=== PATIENT | male | born 1990 | race Caucasian/White ===

== ENCOUNTER 2016-07-31 22:32 | Emergency (ER) | payer OTHER ==
[2016-08-01 00:37] VITALS: BP 125/81
[2016-08-01] MEDS ORDERED: AMOXICILLIN TRIHYDRATE 500 MG CAPSULE PO ONE (00:41)
[2016-08-01] MEDS ORDERED: OXYCODONE-ACETAMINOPHEN 5-325 MG TABLET PO ONE (00:41)
--- NOTE | 2016-08-01 00:44 | ER Document Report ---
HPI - HPI Patient complains to provider of: left ear pain Pain Level: 3 Context: Patient is a 25-year-old male that comes emergency department for chief complaint of pain in his left ear, he states he has been congested for several days but suddenly about 5 hours ago began to have sharp pain, a bubbling sound in his ear, and he states he cannot sleep. Patient denies dizziness, nausea or vomiting, fever. Patient smokes. - EENT EENT: REPORTS: Eye problems - left - DERM Skin Color: Normal - NURSING COMMENTS Comment: pt c/c left ear pain Past Medical History - General Information source: Patient - Social History Smoking Status: Current Every Day Smoker Cigarette use (# per day): Yes Chew tobacco use (# tins/day): No Smoking Education Provided: Yes - <3 min Frequency of alcohol use: Social Drug Abuse: None Lives with: Family Family History: Arthritis, DM, Hypertension, Malignancy, Thyroid Disfunction. denies: CAD, CVA, Hyperlipidemia Patient has suicidal ideation: No Patient has homicidal ideation: No Renal/ Medical History: Denies: Hx Peritoneal Dialysis Musculoskeltal Medical History: Reports Hx Musculoskeletal Deformity, Reports Hx Musculoskeletal Trauma Psychiatric Medical History: Reports: Hx Attention Deficit Hyperactivity Disorder, Hx Bipolar Disorder, Hx Depression, Hx Obsessive Compulsive Disorder Past Surgical History: Reports: Hx Orthopedic Surgery - Immunizations Immunizations up to date: Yes Hx Diphtheria, Pertussis, Tetanus Vaccination: Yes Vertical Provider Document - CONSTITUTIONAL General Appearance: Mild Distress - Patient holding his left ear, appears to be uncomfortable - INFECTION CONTROL TRAVEL OUTSIDE OF THE [place] IN LAST 30 DAYS: No - HEENT HEENT: Atraumatic, Normocephalic. negative: Normal ENT Exam - Left tympanic membrane dull, slightly bulging, erythematous; right TM is unremarkable; otherwise unremarkable ENT exam except for mild nasal congestion - NECK Neck: Normal Inspection - RESPIRATORY Respiratory: Breath Sounds Normal, No Respiratory Distress O2 Sat by Pulse Oximetry: 100 - CARDIOVASCULAR Cardiovascular: Regular Rate, Regular Rhythm - GI/ABDOMEN Gastrointestinal: Abdomen Soft, Abdomen Non-Tender - BACK Back: Normal Inspection - MUSCULOSKELETAL/EXTREMETIES Musculoskeletal/Extremeties: MAEW, FROM, Non-Tender - NEURO Level of Consciousness: Awake, Alert, Appropriate Motor/Sensory: No Motor Deficit, No Sensory Deficit - DERM Integumentary: Warm, Dry, No Rash Course - Vital Signs Vital signs: Temp Pulse Resp BP Pulse Ox 97.4 F 62 18 125/81 100 08/01/16 00:36 08/01/16 00:36 07/31/16 22:37 08/01/16 00:36 08/01/16 00:36 Discharge - Discharge Clinical Impression: Otitis media Qualifiers: Otitis media type: suppurative Laterality: left Chronicity: acute Recurrence: not specified as recurrent Spontaneous tympanic membrane rupture: without spontaneous rupture Qualified Code(s): H66.002 - Acute suppurative otitis media without spontaneous rupture of ear drum, left ear Condition: Stable Disposition: HOME, SELF-CARE Additional Instructions: Examination is consistent with an ear infection on the left side in the middle ear. Take amoxicillin as directed, use Sudafed and nasal spray as directed, take ibuprofen for pain. Follow-up with primary care. Stop smoking, the congestion and likelihood of this kind of infection are higher with smoking (in addition to long-term severe complications from smoking) Return the emergency department for any concerning or worsening symptoms including swelling to the ear or around the ear, fever, dizziness, etc. Prescriptions: Amoxicillin Trihydrate [Amoxil 875 mg Tablet] 1 tab PO BID #20 tablet Fluticasone Propionate [Flonase Nasal [place] 50 Mcg/[place] 16 gm] 2 sprays NASL Q12 #1 inhaler Pseudoephedrine HCl [Sudafed 12-Hour] 120 mg PO Q12 #20 tablet.sa
== END 2016-08-01 01:02 | disposition home or self-care (01) ==
LOC: ER 22:32
DX: H66.002 Acute suppurative otitis media without spontaneous rupture of ear drum, left ear (principal); H92.02 Otalgia, left ear; R09.81 Nasal congestion; F17.210 Nicotine dependence, cigarettes, uncomplicated; Z71.6 Tobacco abuse counseling
CPT/HCPCS: 99282

== ENCOUNTER 2016-08-02 19:04 | Emergency (ER) | payer OTHER ==
--- NOTE | 2016-08-02 22:02 | ER Document Report ---
ED Medical Screen (RME) - General Chief Complaint: Ear Pain Stated Complaint: EAR PAIN Time seen by provider: 22:01 Mode of Arrival: Ambulatory Information source: Patient TRAVEL OUTSIDE OF THE [place] IN LAST 30 DAYS: No - Related Data Allergies/Adverse Reactions: No Known Allergies Allergy (Unverified 07/31/16 22:36) Past Medical History Renal/ Medical History: Denies: Hx Peritoneal Dialysis Musculoskeltal Medical History: Reports Hx Musculoskeletal Deformity, Reports Hx Musculoskeletal Trauma Psychiatric Medical History: Reports: Hx Attention Deficit Hyperactivity Disorder, Hx Bipolar Disorder, Hx Depression, Hx Obsessive Compulsive Disorder Past Surgical History: Reports: Hx Orthopedic Surgery - Immunizations Immunizations up to date: Yes Hx Diphtheria, Pertussis, Tetanus Vaccination: Yes
--- NOTE | 2016-08-02 22:04 | ER Document Report ---
HPI - HPI Onset: Yesterday Pain Level: 1 Context: Patient returns tonight because his dog ate is amoxicillin. He is only had 4 doses. He continues to have left ear pain. He was seen by Juan on Wednesday. No fever or swelling. Associated Symptoms: None Exacerbated by: Denies Relieved by: Denies Similar symptoms previously: No Recently seen / treated by doctor: No - ROS ROS below otherwise negative: Yes Systems Reviewed and Negative: Yes All other systems reviewed and negative - DERM Skin Color: Normal, [place] Past Medical History - General Information source: Patient - Social History Smoking Status: Unknown if Ever Smoked Frequency of alcohol use: None Drug Abuse: None Lives with: Spouse/Significant other Family History: Arthritis, DM, Hypertension, Malignancy, Thyroid Disfunction Patient has suicidal ideation: No Patient has homicidal ideation: No Renal/ Medical History: Denies: Hx Peritoneal Dialysis Musculoskeltal Medical History: Reports Hx Musculoskeletal Deformity, Reports Hx Musculoskeletal Trauma Psychiatric Medical History: Reports: Hx Attention Deficit Hyperactivity Disorder, Hx Bipolar Disorder, Hx Depression, Hx Obsessive Compulsive Disorder Past Surgical History: Reports: Hx Orthopedic Surgery - Immunizations Immunizations up to date: Yes Hx Diphtheria, Pertussis, Tetanus Vaccination: Yes Vertical Provider Document - CONSTITUTIONAL Agree With Documented VS: Yes Exam Limitations: No Limitations General Appearance: No Apparent Distress - INFECTION CONTROL TRAVEL OUTSIDE OF THE [place] IN LAST 30 DAYS: No - NECK Neck: Supple - MUSCULOSKELETAL/EXTREMETIES Musculoskeletal/Extremeties: MAEW, FROM - NEURO Level of Consciousness: Awake, Alert - DERM Integumentary: Warm, Dry Discharge - Discharge Clinical Impression: Left otitis media Qualifiers: Otitis media type: suppurative Chronicity: acute Recurrence: not specified as recurrent Spontaneous tympanic membrane rupture: without spontaneous rupture Qualified Code(s): H66.002 - Acute suppurative otitis media without spontaneous rupture of ear drum, left ear Condition: Good Disposition: HOME, SELF-CARE Instructions: Otitis Media ([facility]), Amoxicillin ([facility]) Additional Instructions: to er if worse recheck your ear on wednesday at your sick call Prescriptions: Amoxicillin Trihydrate [Amoxil 500 mg Capsule] 1,000 mg PO BID #30 cap Forms: Restricted Release
[2016-08-02 22:05] VITALS: BP 121/80
== END 2016-08-02 22:11 | disposition home or self-care (01) ==
LOC: ER 19:04
DX: H66.002 Acute suppurative otitis media without spontaneous rupture of ear drum, left ear (principal)
CPT/HCPCS: 99281

== ENCOUNTER 2016-11-05 02:43 | Emergency (ER) | payer OTHER ==
[2016-11-05] MEDS ORDERED: DOXYCYCLINE HYCLATE 100 MG TABLET PO ONE ×2 (05:17→05:22)
--- NOTE | 2016-11-05 05:19 | ER Document Report ---
HPI - HPI Patient complains to provider of: Finger laceration Pain Level: Denies Context: Patient is a 25-year-old male who comes emergency department for chief complaint of wanting his right finger pad of the fifth digit evaluated. He states that over one day ago he accidentally cut the area with an avulsion injury using a razor blade, he states that he cleaned the area with peroxide and dressed it but he has noticed that the area has become red and slightly more tender today, injury happened over 24 hours ago. Patient denies fever, diabetes, history of cellulitis. He states he is up-to-date on his tetanus within 5 years. - DERM Skin Color: Normal Past Medical History - General Information source: Patient - Social History Smoking Status: Never Smoker Drug Abuse: None Lives with: Family Family History: Arthritis, DM, Hypertension, Malignancy, Thyroid Disfunction Patient has suicidal ideation: No Patient has homicidal ideation: No Renal/ Medical History: Denies: Hx Peritoneal Dialysis Musculoskeltal Medical History: Reports Hx Musculoskeletal Deformity, Reports Hx Musculoskeletal Trauma Psychiatric Medical History: Reports: Hx Attention Deficit Hyperactivity Disorder, Hx Bipolar Disorder, Hx Depression, Hx Obsessive Compulsive Disorder Past Surgical History: Reports: Hx Orthopedic Surgery - Immunizations Immunizations up to date: Yes Hx Diphtheria, Pertussis, Tetanus Vaccination: Yes Vertical Provider Document - CONSTITUTIONAL General Appearance: WD/WN, No Apparent Distress - INFECTION CONTROL TRAVEL OUTSIDE OF THE [place] IN LAST 30 DAYS: No - HEENT HEENT: Atraumatic, Normocephalic - NECK Neck: Normal Inspection - RESPIRATORY Respiratory: Breath Sounds Normal, No Respiratory Distress O2 Sat by Pulse Oximetry: 97 - CARDIOVASCULAR Cardiovascular: Regular Rate, Regular Rhythm - GI/ABDOMEN Gastrointestinal: Abdomen Soft, Abdomen Non-Tender - BACK Back: Normal Inspection - MUSCULOSKELETAL/EXTREMETIES Musculoskeletal/Extremeties: MAEW, FROM, Non-Tender - NEURO Level of Consciousness: Awake, Alert, Appropriate - DERM Integumentary: negative: Laceration - small skin avulsion over the right fingerpad. Normal capillary refill, sensation, range of motion of the finger and hand, unremarkable examination otherwise Course - Re-evaluation Re-evalutation: There is a scab at the avulsion injury with very mild surrounding erythema and heat, slightly more than I would expect for just granulation, appears to be possible minimal cellulitis. No induration or fluctuance to the area, normal examination otherwise, discussed treatment with antibiotic, discussed follow-up , discussed return precautions in detail, patient states understanding and agreement. - Vital Signs Vital signs: Temp Pulse Resp BP Pulse Ox 97.8 F 73 18 134/66 H 97 11/05/16 03:02 11/05/16 03:02 11/05/16 03:02 11/05/16 03:02 11/05/16 03:02 Discharge - Discharge Clinical Impression: Finger laceration Qualifiers: Encounter type: initial encounter Qualified Code(s): S61.219A - Laceration without foreign body of unspecified finger without damage to nail, initial encounter Cellulitis Qualifiers: Site of cellulitis: extremity Site of cellulitis of extremity: upper extremity Laterality: right Qualified Code(s): L03.113 - Cellulitis of right upper limb Condition: Stable Disposition: HOME, SELF-CARE Additional Instructions: Take the antibiotic as prescribed. Keep clean dressing over the area. Follow-up with primary care. Return immediately for any signs of worsening symptoms including swelling, spreading redness, fever, or any other concerning symptoms. Prescriptions: Doxycycline Hyclate 100 mg PO BID #14 capsule
[2016-11-05 05:24] VITALS: BP 128/76
== END 2016-11-05 05:24 | disposition home or self-care (01) ==
LOC: ER 02:43
DX: S61.216A Laceration without foreign body of right little finger without damage to nail, initial encounter (principal); L03.113 Cellulitis of right upper limb; W26.8XXA Contact with other sharp object(s), not elsewhere classified, initial encounter
CPT/HCPCS: 99283